=== PATIENT | male | born 1965 | race Asian ===

== ENCOUNTER → 2019-02-26 | Outpatient (CLI) | payer OTHER ==
--- NOTE | 2019-02-26 07:53 | EKG ---
[address] [address] ELECTROCARDIOGRAM REPORT Name: TOBY BARRON [id number] ������������������ Admission: 02/26/19 ������������������ Attend Phys: Nhan Smalls MD Discharge: ������������������ Date of : 63 Report #: [id number] ����������������������������������������������������������������� [id number] THIS REPORT FOR: //name// [facility] Test Date: 2019-02-26 Test Time: 07:48:56 Pat Name: TOBY BARRON Department: Room: Gender: Food Science Technician: noreen : 1965 Requested By: Nhan Smalls Order Number: [id number] MD: Flex Gray Measurements Intervals [place] Rate: 73 P: 45 NM: 170 QRS: 32 QRSD: 95 T: 3 QT: 397 QTc: 438 Interpretive Statements Sinus rhythm No significant abnormality No previous ECG available for comparison Electronically Signed On 02-26-2019 7:53:50 CDT by Flex Gray [email or web address] ��������������������������������������������� <ELECTRONICALLY SIGNED> ���������������������������������������� By: Flex Gray MD, [facility] ��������������������������������������������� 02/26/19 0753 0748 0748 Flex Gray MD, FACC /EPI
== END | disposition home or self-care (01) ==
LOC: LITH 06:59
DX: N20.0 Calculus of kidney (principal); E78.00 Pure hypercholesterolemia, unspecified; J45.909 Unspecified asthma, uncomplicated; K21.9 Gastro-esophageal reflux disease without esophagitis; Z86.010 Personal history of colon polyps; Z98.890 Other specified postprocedural states; Z79.899 Other long term (current) drug therapy